=== PATIENT | female | born 1960 | race Caucasian/White ===

== ENCOUNTER 2020-01-24 15:02 | Emergency (ER) | payer OTHER ==
[~2020-01-24] VITALS: Ht 160 cm; Wt 69.4 kg
[2020-01-24] MEDS ORDERED: ALTACE1.25 MG (15:29)
[2020-01-24] MEDS ORDERED: NAPROXEN375 MG (15:29)
[2020-01-24] MEDS ORDERED: CIPRO500 MG (15:30)
[2020-01-25] MEDS ORDERED: LEVSIN/SL0.125 MG SL (04:36)
[2020-01-25] MEDS ORDERED: KETO10TA2 PO (04:36)
== END 2020-01-25 04:43 ==
LOC: ER 15:02
DX: R10.13 Epigastric pain (principal)

== ENCOUNTER 2021-01-05 19:46 | Emergency (ER) | payer OTHER ==
[~2021-01-05] VITALS: Ht 160 cm; Wt 72.1 kg
[~2021-01-05 19:46] MED LIST: ALTACE1.25 MG; CIPRO500 MG; KETO10TA2 PO; LEVSIN/SL0.125 MG SL; NAPROXEN375 MG
[2021-01-06] MEDS ORDERED: ANUSOL-HC30 G2 RECTAL ×2 (05:04→05:06)
[2021-01-06] MEDS ORDERED: KETO10TA2 PO (05:05)
[2021-01-06] MEDS ORDERED: CEFUROXIME500 MG PO (05:05)
[2021-01-06] MEDS ORDERED: TAMS0.4C PO (05:05)
== END 2021-01-06 05:14 | disposition home or self-care (01) ==
LOC: ER 19:46
DX: N20.0 Calculus of kidney (principal); N39.0 Urinary tract infection, site not specified; R31.29 Other microscopic hematuria; R10.11 Right upper quadrant pain

== ENCOUNTER 2021-03-31 11:24 | Outpatient (CLI) | payer OTHER ==
[~2021-03-31 11:24] MED LIST changes: +ANUSOL-HC30 G2 RECTAL; +CEFUROXIME500 MG PO; +TAMS0.4C PO
== END 2021-03-31 12:00 | disposition home or self-care (01) ==
LOC: RX STUDY 11:24
PROVIDERS: ATTEND Colon & Rectal Surgery
DX: K59.09 Other constipation (principal)

== ENCOUNTER 2021-04-18 12:28 | Emergency (ER) | payer OTHER ==
[~2021-04-18] VITALS: Ht 160 cm; Wt 63.5 kg
[2021-04-18] MEDS ORDERED: ENALAPRIL MALEAT5 MG (12:47)
[2021-04-18] MEDS ORDERED: KRISTALOSE10 GM (12:47)
== END 2021-04-18 19:30 | disposition home or self-care (01) ==
LOC: ER 12:28
DX: R10.84 Generalized abdominal pain (principal)

== ENCOUNTER 2021-06-23 04:02 | Emergency (ER) | payer OTHER ==
[~2021-06-23] VITALS: Ht 160 cm; Wt 59.0 kg
[~2021-06-23 04:02] MED LIST changes: +ENALAPRIL MALEAT5 MG; +KRISTALOSE10 GM
[2021-06-23] MEDS ORDERED: AMITIZA24 MCG (04:21)
== END 2021-06-23 13:27 | disposition home or self-care (01) ==
LOC: ER 04:02
DX: R10.13 Epigastric pain (principal)